=== PATIENT | female | born 1965 | race Caucasian/White ===

== ENCOUNTER 2016-04-10 12:34 | Emergency (ER) | payer OTHER ==
[~2016-04-10] VITALS: Ht 157.5 cm; Wt 87.9 kg
[~2016-04-10 12:34] MED LIST: CEFDINIR300 MG PO; CIPRO500 MG PO; DELTASONE20 MG PO; GABAPENTIN300 MG PO; LYRICA50 MG PO; MONTELUKAST SOD10 MG PO; NOHOMEMEDS; PANTOPRAZOLE SO40 MG PO; PREDNISONE10 MG PO; PROAIR HFA8.5 GM IH; SYMBICORT60 INHALAT IH; TAMIFLU75 MG PO; Tylenol Regular Stre PO; ZITHROMAX500 MG PO
[2016-04-10 13:17] LABS: HEMATOCRIT 39.5 % (36.0-46.0); MCH 27.3 PG (29.0-34.0); MCHC 33.7 G/DL (30.0-36.0); MCV 80.9 FL (83-99); MEAN PLAT.VOLUME 10.1 uM^3 (9.5-12.4); PLATELET COUNT 198 K/uL (156-360); RBC DIS.WIDTH-CV 17.5 % (11.8-14.6); RBC DIS.WIDTH-SD 50.5 % (39-53); RED BLOOD COUNT 4.88 M/uL (3.80-5.20); WHITE BLOOD COUNT 12.2 K/uL (4.1-10.2)
[2016-04-10 13:29] LABS: CHLORIDE 103 mEq/L (99-109); POTASSIUM 3.5 mEq/L (3.7-5.4); SODIUM 134 mEq/L (136-147)
[2016-04-10 13:30] LABS: GLUCOSE 171 mg/dL (70-99)
[2016-04-10 13:32] LABS: ANION GAP 12 MEQ/L (2-14)
[2016-04-10 13:34] LABS: GFR ESTIMATE (CALCULATED) > 59 mL/min/
[2016-04-10 13:35] LABS: UREA NITROGEN (BUN) 10 mg/dL (9-23)
[2016-04-10 13:39] LABS: TROP-I INTERPRETATION NEGATIVE; TROPONIN-I < 0.01 ng/mL (0.0-0.30)
[2016-04-10 13:43] LABS: QUANTITATIVE HCG < 4.0 MIU/ML
[2016-04-10] MEDS ORDERED: LEVAQUIN750 MG PO (15:17)
[2016-04-10 16:45] VITALS: BP 152/85
== END 2016-04-10 16:53 | disposition home or self-care (01) ==
LOC: EME 12:34
PROVIDERS: Emergency Medicine
DX: J44.0 Chronic obstructive pulmonary disease with (acute) lower respiratory infection (principal); J18.9 Pneumonia, unspecified organism; F17.200 Nicotine dependence, unspecified, uncomplicated; Z71.6 Tobacco abuse counseling; J45.909 Unspecified asthma, uncomplicated; K21.9 Gastro-esophageal reflux disease without esophagitis
CPT/HCPCS: 71010; 80048; 84484; 84702; 85027; 93005; 99281; 99285; J7030

== ENCOUNTER 2016-07-27 12:53 | Observation (INO) | payer OTHER ==
[~2016-07-27] VITALS: Ht 157.5 cm; Wt 88.1 kg
[~2016-07-27 12:53] MED LIST changes: +LEVAQUIN750 MG PO
[2016-07-27 13:52] LABS: HEMATOCRIT 42.1 % (36.0-46.0); MCH 26.7 PG (29.0-34.0); MCHC 32.5 G/DL (30.0-36.0); MCV 81.9 FL (83-99); MEAN PLAT.VOLUME 10.2 uM^3 (9.5-12.4); PLATELET COUNT 333 K/uL (156-360); RBC DIS.WIDTH-CV 14.6 % (11.8-14.6); RBC DIS.WIDTH-SD 43.8 % (39-53); RED BLOOD COUNT 5.14 M/uL (3.80-5.20); WHITE BLOOD COUNT 18.5 K/uL (4.1-10.2)
[2016-07-27 14:02] LABS: CHLORIDE 103 mEq/L (99-109); SODIUM 135 mEq/L (136-147)
[2016-07-27 14:05] LABS: GLUCOSE 138 mg/dL (70-99)
[2016-07-27 14:06] LABS: ANION GAP 11 MEQ/L (2-14); TOTAL BILIRUBIN 0.4 mg/dL (0.0-1.0)
[2016-07-27 14:08] LABS: ALKALINE PHOSPHATASE 98 IU/L (3-129); GFR ESTIMATE (CALCULATED) > 59 mL/min/
[2016-07-27 14:09] LABS: UREA NITROGEN (BUN) 13 mg/dL (9-23)
[2016-07-27 14:10] LABS: DIRECT BILIRUBIN 0.1 mg/dL (0.0-0.3)
[2016-07-27 14:12] LABS: LIPASE 15 U/L (1.0-51.0)
[2016-07-27 14:17] LABS: TROP-I INTERPRETATION NEGATIVE; TROPONIN-I < 0.01 ng/mL (0.0-0.30)
[2016-07-27] MEDS ORDERED: NEURONTIN300 MG PO (15:48)
[2016-07-27] MEDS ORDERED: PROVENTIL,2.5 MG/3 M IH (15:49)
[2016-07-27] MEDS ORDERED: BLUE TP (15:50)
[2016-07-27 16:50] VITALS: BP 195/92
[2016-07-27 18:34] VITALS: BP 170/72
[2016-07-27 19:30] VITALS: BP 146/74
[2016-07-27 23:29] VITALS: BP 145/67
[2016-07-28 03:37] VITALS: BP 126/58
[2016-07-28 07:39] VITALS: BP 120/58
[2016-07-28 07:48] LABS: HEMATOCRIT 39.2 % (36.0-46.0); MCH 26.7 PG (29.0-34.0); MCHC 31.4 G/DL (30.0-36.0); MCV 85.2 FL (83-99); MEAN PLAT.VOLUME 10.3 uM^3 (9.5-12.4); PLATELET COUNT 267 K/uL (156-360); RBC DIS.WIDTH-SD 47.2 % (39-53)
[2016-07-28 07:52] LABS: WHITE BLOOD COUNT 12.3 K/uL (4.1-10.2)
[2016-07-28 07:57] LABS: ALKALINE PHOSPHATASE 94 IU/L (3-129); ANION GAP 7 MEQ/L (2-14); CHLORIDE 105 MEQ/L (99-109); DIRECT BILIRUBIN 0.1 mg/dL (0.0-0.3); GFR ESTIMATE (CALCULATED) > 59 mL/min/; GLUCOSE 118 mg/dL (70-99); POTASSIUM 4.3 MEQ/L (3.7-5.4); SAMPLE HEMOLYSIS CHECK 0; SAMPLE ICTERIC CHECK 0; SAMPLE LIPEMIA CHECK 0; SODIUM 139 MEQ/L (136-147); TOTAL BILIRUBIN 0.5 MG/DL (0.0-1.0); UREA NITROGEN (BUN) 9 mg/dL (9-23)
[2016-07-28 11:19] VITALS: BP 119/58
[2016-07-28 14:49] VITALS: BP 155/62
[2016-07-28 23:23] VITALS: BP 123/60
[2016-07-29 03:42] VITALS: BP 111/62
[2016-07-29 06:13] LABS: EOSINOPHIL (%) 0.4 % (0-5); EOSINOPHIL COUNT 0.1 K/uL (0-0.3); HEMATOCRIT 36.9 % (36.0-46.0); IMMATURE GRANULOCYTE (%) 0.4 % (0.0-0.7); IMMATURE GRANULOCYTE COUNT 0.1 K/uL; INSTRUMENT ABS NEUTROPHIL CT 11.2 K/uL; LYMPHOCYTE COUNT 1.5 K/uL (1.0-2.8); MCH 26.6 PG (29.0-34.0); MCHC 30.6 G/DL (30.0-36.0); MCV 86.8 FL (83-99); MEAN PLAT.VOLUME 10.7 uM^3 (9.5-12.4); MONOCYTE (%) 5.1 % (3-12); MONOCYTE COUNT 0.7 K/uL (0-0.8); NEUTROPHIL (%) 83.1 % (45-76); NEUTROPHIL COUNT 11.2 K/uL (1.8-6.4); PLATELET COUNT 258 K/uL (156-360); RBC DIS.WIDTH-CV 14.9 % (11.8-14.6); RBC DIS.WIDTH-SD 47.5 % (39-53); RED BLOOD COUNT 4.25 M/uL (3.80-5.20); WHITE BLOOD COUNT 13.4 K/uL (4.1-10.2)
[2016-07-29 06:39] LABS: ALKALINE PHOSPHATASE 92 IU/L (3-129); ANION GAP 9 MEQ/L (2-14); CHLORIDE 104 MEQ/L (99-109); GFR ESTIMATE (CALCULATED) > 59 mL/min/; GLUCOSE 121 mg/dL (70-99); POTASSIUM 4.4 MEQ/L (3.7-5.4); SAMPLE HEMOLYSIS CHECK 0; SAMPLE ICTERIC CHECK 0; SAMPLE LIPEMIA CHECK 0; SODIUM 137 MEQ/L (136-147); TOTAL BILIRUBIN 0.3 MG/DL (0.0-1.0); UREA NITROGEN (BUN) 8 mg/dL (9-23)
[2016-07-29 06:45] VITALS: BP 121/58
[2016-07-29 15:23] VITALS: BP 142/67
[2016-07-29] MEDS ORDERED: COLACE100 MG PO (17:08)
[2016-07-29] MEDS ORDERED: PERCOCET 5/31 TABLET PO (17:08)
== END 2016-07-29 18:11 | disposition home or self-care (01) ==
LOC: EME 12:53 → EDOF 15:26 → 2EASTP 15:26
PROVIDERS: Surgery
PROC: 0FT44ZZ Resection of Gallbladder, Percutaneous Endoscopic Approach (ICD-10-PCS; principal; 2016-07-28)
DX: K80.12 Calculus of gallbladder with acute and chronic cholecystitis without obstruction (principal); K76.0 Fatty (change of) liver, not elsewhere classified; G62.9 Polyneuropathy, unspecified; E66.9 Obesity, unspecified; Z68.35 Body mass index [BMI] 35.0-35.9, adult; F17.210 Nicotine dependence, cigarettes, uncomplicated
CPT/HCPCS: 71020; 76705; 80048; 80053; 80076; 83690; 83735; 84100; 84484; 85025; 85027; 87070; 87075; 87205; 88304; 93005; 94640; 94640 76; 94799; 99202; 99281; 99285; G0378; J0131; J0290; J0330; J0696; J1100; J2270; J2405; J2710; J3010; J7030; J7050; S0028

== ENCOUNTER → 2016-10-14 | Outpatient (CLI) | payer OTHER ==
[~2016-10-14] VITALS: Ht 157.5 cm; Wt 83.5 kg
[~2016-10-14] MED LIST changes: +BLUE TP; +COLACE100 MG PO; +NEURONTIN300 MG PO; +PERCOCET 5/31 TABLET PO; +PROVENTIL,2.5 MG/3 M IH; +STIOLTO RESPIMAT4 GM IH; +VITAMIN D35000 UNIT PO; +ZOCOR40 MG PO
== END | disposition home or self-care (01) ==
LOC: AMB 13:46
PROC: 0DBN8ZX Excision of Sigmoid Colon, Via Natural or Artificial Opening Endoscopic, Diagnostic (ICD-10-PCS; principal; 2016-10-14)
DX: Z12.11 Encounter for screening for malignant neoplasm of colon (principal); K63.5 Polyp of colon; Z86.010 Personal history of colon polyps; Z80.0 Family history of malignant neoplasm of digestive organs; E66.9 Obesity, unspecified; J44.9 Chronic obstructive pulmonary disease, unspecified; G62.9 Polyneuropathy, unspecified; Z90.49 Acquired absence of other specified parts of digestive tract; Z87.440 Personal history of urinary (tract) infections; F17.200 Nicotine dependence, unspecified, uncomplicated
CPT/HCPCS: 88305; J7120